=== PATIENT | female | born 1995 | race Caucasian/White ===

== ENCOUNTER → 2020-05-09 08:31 | Outpatient (BNVA) | payer OTHER, MEDICAID, SELFPAY | PROVIDERS: Visit Provider Obstetrics & Gynecology | DX: Z32.01 Encounter for pregnancy test, result positive (principal) | CPT/HCPCS: 81025 ==

== ENCOUNTER → 2020-06-27 11:55 | Outpatient (BNVA) | payer BC, MEDICAID, SELFPAY | PROVIDERS: Visit Provider Obstetrics & Gynecology | DX: O09.899 Supervision of other high risk pregnancies, unspecified trimester (principal); Z3A.00 Weeks of gestation of pregnancy not specified | CPT/HCPCS: 80307; 81000; 82950; 84443; 85027; 86592; 86762; 86803; 86850; 86900; 87086; 87340; 87806 ==

== ENCOUNTER → 2020-07-05 14:38 | Outpatient (BNVA) | payer BC, MEDICAID, SELFPAY | PROVIDERS: Visit Provider Obstetrics & Gynecology | DX: O09.291 Supervision of pregnancy with other poor reproductive or obstetric history, first trimester (principal); O09.899 Supervision of other high risk pregnancies, unspecified trimester | CPT/HCPCS: 81000; 87491; 87591; 88175 ==

== ENCOUNTER → 2020-07-31 00:01 | Outpatient (BNVA) | payer BC, MEDICAID, SELFPAY | PROVIDERS: Visit Provider Obstetrics & Gynecology | DX: O09.291 Supervision of pregnancy with other poor reproductive or obstetric history, first trimester (principal) | CPT/HCPCS: 84156 ==

== ENCOUNTER → 2020-08-04 13:13 | Outpatient (BNVA) | payer BC, MEDICAID, SELFPAY | PROVIDERS: Visit Provider Nurse Practitioner Women's Health | DX: O99.211 Obesity complicating pregnancy, first trimester (principal); O34.219 Maternal care for unspecified type scar from previous cesarean delivery; Z30.2 Encounter for sterilization; O09.291 Supervision of pregnancy with other poor reproductive or obstetric history, first trimester; O09.899 Supervision of other high risk pregnancies, unspecified trimester | CPT/HCPCS: 81000 ==

== ENCOUNTER → 2020-08-29 09:53 | Outpatient (BNVA) | payer BC, MEDICAID, SELFPAY | PROVIDERS: Visit Provider Obstetrics & Gynecology | DX: O34.219 Maternal care for unspecified type scar from previous cesarean delivery (principal); O99.211 Obesity complicating pregnancy, first trimester; O09.291 Supervision of pregnancy with other poor reproductive or obstetric history, first trimester; Z04.89 Encounter for examination and observation for other specified reasons | CPT/HCPCS: 81000 ==

== ENCOUNTER → 2020-09-27 12:40 | Outpatient (BNVA) | payer BC, MEDICAID, SELFPAY | PROVIDERS: Visit Provider Obstetrics & Gynecology | DX: O09.899 Supervision of other high risk pregnancies, unspecified trimester (principal); Z3A.00 Weeks of gestation of pregnancy not specified | CPT/HCPCS: 81000 ==

== ENCOUNTER → 2020-10-23 14:09 | Outpatient (BNVA) | payer BC, MEDICAID, SELFPAY | PROVIDERS: Visit Provider Obstetrics & Gynecology | DX: O09.899 Supervision of other high risk pregnancies, unspecified trimester (principal); O34.219 Maternal care for unspecified type scar from previous cesarean delivery; Z30.2 Encounter for sterilization; O99.211 Obesity complicating pregnancy, first trimester; O09.291 Supervision of pregnancy with other poor reproductive or obstetric history, first trimester | CPT/HCPCS: 81000; 82950; 85025 ==

== ENCOUNTER → 2020-10-26 08:27 | Outpatient (BNVA) | payer BC, MEDICAID, SELFPAY | PROVIDERS: Visit Provider Obstetrics & Gynecology | DX: O09.899 Supervision of other high risk pregnancies, unspecified trimester (principal); R73.09 Other abnormal glucose | CPT/HCPCS: 82951; 82952 ==

== ENCOUNTER → 2020-11-08 10:32 | Outpatient (BNVA) | payer BC, MEDICAID, SELFPAY | PROVIDERS: Visit Provider Obstetrics & Gynecology | DX: O09.899 Supervision of other high risk pregnancies, unspecified trimester (principal) | CPT/HCPCS: 81000; 82570; 84156 ==

== ENCOUNTER → 2020-11-22 09:41 | Outpatient (BNVA) | payer BC, MEDICAID, SELFPAY | PROVIDERS: Visit Provider Obstetrics & Gynecology | DX: O09.899 Supervision of other high risk pregnancies, unspecified trimester (principal) | CPT/HCPCS: 81000 ==

== ENCOUNTER 2020-11-23 16:44 | Outpatient (CLI) | payer BC, MEDICAID, SELFPAY ==
[2020-11-23 16:58] VITALS: BP 128/71; PULSE 110
[2020-11-23 17:01] VITALS: RESP 17; RESP 20; TEMP 36.9
[2020-11-23 17:06] VITALS: BMI 46.6
[2020-11-23 17:18] VITALS: BP 117/58; PULSE 100
[2020-11-23 17:38] VITALS: BP 116/58; PULSE 95
[2020-11-23 17:45] VITALS: BP 116/58; PULSE 95; RESP 20; TEMP 36.9
== END 2020-11-23 17:50 | disposition home or self-care (01) ==
LOC: OPOB 16:46 → OBGYN 16:48
PROVIDERS: Visit Provider Obstetrics & Gynecology
DX: O26.899 Other specified pregnancy related conditions, unspecified trimester (principal); Z3A.00 Weeks of gestation of pregnancy not specified; M54.9 Dorsalgia, unspecified; R10.2 Pelvic and perineal pain
CPT/HCPCS: 59025; 99211

== ENCOUNTER 2020-11-29 23:45 | Observation (INO) | payer OTHER, BC, MEDICAID, SELFPAY ==
[2020-11-23 17:01] VITALS: RESP 17
[2020-11-29] VITALS (95 sets, daily range): BP systolic 84–187; BP diastolic 47–96; PULSE 95–143; RESP 16; TEMP 36.7; O2SAT 96–99; BMI 46.6
--- NOTE | 2020-11-29 17:49 | USR_ITS ---
PROCEDURE INFORMATION: Exam: US Biophysical Profile Without Non-Stress Test Exam date and time: 11/29/2020 6:12 PM Age: 25 years old Clinical indication: Other: High blood pressure; ; Additional info: Elevated blood pressure TECHNIQUE: Imaging protocol: US biophysical profile without non-stress testing. COMPARISON: US OB >= 14 weeks fetus [facility] 08/29/2020 9:24 AM FINDINGS: heart rate: A single fetus is present heart rate is 150 BPM. Placenta is anterior. The amniotic fluid is normal in volume the cervix is unremarkable measuring 4.9 cm. BIOPHYSICAL PROFILE: Breathin/2 Gross body movements: 2/2 tone: 2/2 Qualitative amniotic fluid: 2/2 Biophysical Profile Score: 8/8 BIOMETRY: Gestational age (AUA): Gestational age 33 weeks 1 day JOANNE 01/16/2021 US/US OB BPP wo NST 79168 IMPRESSION: 1. Biophysical profile score is 8 out of 8. 2. Single fetus as described. 3. Gestational age 33 weeks 1 day JOANNE 01/16/2021
[2020-11-29 18:24] LABS: Add Urine Microscopic? NO; Charge for UA Resulting for Rev
[2020-11-29 18:28] LABS: Basophils % 0.3 %; Eosinophils # 0.1 10^3/uL (0.0-0.8); Eosinophils % 0.7 %; Hematocrit 33.8 % (37.0-47.0); Hemoglobin 10.7 g/dL (11.5-15.3); Lymphocytes # 1.6 10^3/uL (0.8-4.8); Lymphocytes % 11.7 %; Mean Corpuscular HGB Conc 31.7 g/dL (30.0-36.0); Mean Platelet Volume 10.5 fL (7.4-10.4); Monocytes # 0.8 10^3/uL (0.2-0.9); Neutrophils # 11.12 10^3/uL (1.8-7.7); Neutrophils % 80.6 %; Nucleated Red Blood Cells % 0 %; Platelet Count 257 10^3/cmm (130-400); Red Blood Count 4.12 10^6/uL (4.1-5.3); Red Cell Distribution Width 14.4 % (12.1-15.1); White Blood Count 13.8 10^3/uL (4.0-10.0)
[2020-11-29] MEDS: magnesium sulfate premix 4 GM/100 ML PREMIX IV (18:36)
[2020-11-29] MEDS: dextrose 5%-lactated ringers 1,000 ML 125 ML IV (18:36)
[2020-11-29] MEDS: betamethasone susp 6 mg/mL 5 mL 12 MG IM (18:36)
[2020-11-29 18:50] LABS: Urine Creatinine 200 mg/dL (28-217); Urine Protein Random 10 mg/dL
[2020-11-29 18:52] LABS: Alanine Aminotransferase 8 U/L (0-33); Albumin Level 3.5 g/dL (3.5-5.2); Alkaline Phosphatase 108 IU/L (35-105); Anion Gap 14.7 (5-19); Aspartate Amino Transferase 9 U/L (0-32); Blood Urea Nitrogen 8 mg/dL (6-20); Calcium 8.3 mg/dL (8.5-10.5); Carbon Dioxide 23 mmol/L (22-29); Chloride 103 mmol/L (98-107); Glomerular Filtration Rate 150.3 mL/min (90-130); Glucose 94 mg/dL (65-115); Osmolality Calculated 282 mOsm/kg (285-295); Potassium 3.7 mmol/L (3.5-5.1); Sodium 137 mmol/L (136-145); Total Bilirubin 0.3 mg/dL (0.15-1.2); Total Protein 6.5 g/dL (6.6-8.7); Uric Acid 5.2 mg/dL (2.4-5.7)
[2020-11-29 18:52] LABS: UPRO/UCREAT Ratio 0.05 mg/mg CR
[2020-11-29 18:55] LABS: Urine Appearance Clear (CLEAR); Urine Color Yellow (Yellow)
[2020-11-29 18:56] LABS: Bilirubin Urine 1+ (Negative); Blood Urine Neg (Negative); Glucose Urine UA Norm (Normal); Ketones Urine Negative (Negative); Leukocyte Esterase Urine Negative (Negative); Nitrate Urine Negative (Negative); Protein Urine Neg (Negative); Urobilinogen Urine 1 mg/dL (Negative); pH Urine 6 (5-7)
--- NOTE | 2020-11-29 19:16 | PC.NURSE ---
MAGNESIUM SULFATE ADMINISTRATION STARTED AT 1836. THIS NURSE DID NOT RECOGNIZE THE 6 GRAM BOLUS WAS INFUSING FROM THE 500ML BAG UNTIL 5 GRAMS HAD BEEN INFUSED. THIS NURSE CONSTANTLY ASSESSED PT AND ONLY COMPLAINT WAS FLUSHED AND FEELING HOT. THIS NURSE REPORTED TO Thomas WEATHERS RN MISTAKE.
[2020-11-29] MEDS: NIFEdipine 10 mg Capsule 30 MG PO (20:33)
[2020-11-29] MEDS: sodium chloride 0.9% 1,000 ML 999 ML IV (21:27)
[2020-11-29] MEDS: fentaNYL 50 mcg/mL INJ 2mL 25 MCG IVP (22:57)
[2020-11-30] VITALS (46 sets, daily range): BP systolic 87–125; BP diastolic 50–69; PULSE 91–109; RESP 18; O2SAT 94–97
[2020-11-30] MEDS: dextrose 5%-lactated ringers 1,000 ML 125 ML IV (01:59)
[2020-11-30] MEDS: acetaminophen 500 mg Tablet PO (02:37)
--- NOTE | 2020-11-30 09:03 | PM.SDS ---
Short Stay Summary Providers Date of Admit/Discharge: 11/30/20 Attending Provider: Esther Green MD Chief Complaint: ELEVATED BLOOD PRESSURE HPI History of Present Illness Kayy Botello is a 25 year old female 4 para 2011 with an LMP of 03/22/2020 and an EDC of 01/16/2021 dated by a by 7 week ultrasound, placing her at 32 1/7 weeks today. Sent over from clinic due to elevated blood pressures, and suspected preeclampsia. Review of Systems Const: Denies: fever(s), chills, change in appetite, change in weight, fatigue, malaise or change in sleep pattern Resp: Denies: dyspnea, productive cough, wheezing or chest congestion GI: Denies: abdominal pain, nausea, vomiting, heartburn, diarrhea, constipation, change in bowel habits or hematochezia : Denies: flank pain, dysuria, urinary frequency, urinary urgency, urinary incontinence, genital lesions, vaginal odor, vaginal bleeding, vaginal discharge, change in menstrual flow or dyspareunia Psych: Denies: anxiety, depression, mood swings or change in appetite Home Meds/Allergies Home Medications and Allergies Home Medications Medication Instructions Recorded Confirmed Type prenat.vits,tatiana,[id number] 1 tab PO DAILY 05/26/20 11/29/20 History aspirin 81 mg chewable tablet 81 mg PO DAILY 08/04/20 11/29/20 History acetaminophen [Tylenol] 325 mg PO QID 11/29/20 11/29/20 History Allergies Allergy/AdvReac Type Severity Reaction Status Date / Time No Known Allergies Allergy Verified 11/22/20 11:01 PFSH Acute PFSH: Medical History No pertinent past medical history Denies diabetes, asthma, hypertension, seizures, DVT/PE PMD: None Surgical History Hx of section X 2 1) 05/24/2015--was told she could not have a vaginal delivery and had a scheduled . 2) 11/12/2018--scheduled repeat delivery. Operative report requested and received-low transverse uterine incision single layer uterine closure, no documentation of any excessive adhesions. Family History Grandfather Heart disease Paternal Colon cancer Maternal--- dx age unknown Stroke Paternal Father Hypertension Heart disease Sister Thyroid disease Denies family history of Ovarian cancer Diabetes Hypercholesteremia Breast cancer Bleeding disorder Uterine cancer Female Reproductive History: : 4 Vitals/I&O/Wt Last Vital Signs Temp 98.0 F 11/29/20 23:54 Pulse 100 11/30/20 08:52 Resp 16 11/29/20 22:57 BP 103/55 11/30/20 08:52 Pulse Ox 95 11/30/20 02:13 11/29/20 11/30/20 11/30/20 22:59 06:59 14:59 Intake Total 100 / 100 1075 / 1175 Output Total 400 / 400 Balance -300 / -300 1075 / 775 Weight last 48 hrs Weight 115.666 kg Physical Exam Narrative: EXAM NARRATIVE: GA: Alert and oriented ?3. Lungs: Clear to auscultation bilaterally. Heart: Regular rhythm and rate. Abdomen: Gravid, full the height equals dates, nontender. CHAIR INSPECTOR: SVE; dilation: close, effacement: 0%, station:, presentation: vertex, membranes:intact. Extremities: no edema, no cyanosis, no calves pain. heart tracing: Basal rate: 140 bpm, Variability: Moderate, Accelerations: Present, Decelerations: Absent, Contraction: NONE now. Urinary Catheter Management^: Aguirre Latex: Cath Placed During This Visit: yes, but has since been removed by the nurse Reason for Continuing Indwelling Catheter: Decision to DC Catheter Urinary Catheter Date of Insertion: 11/29/20 Urinary Catheter Time of Insertion: 18:50 Date Urinary Catheter Removed: 11/29/20 Time Urinary Catheter Discontinued: 22:05 Hospital Course Admission Diagnoses Elevated blood pressure. with EGA at 31 weeks Hospital Course Mrs. Rosenberg 25-year-old female with an estimated stational age at 31 weeks sent over from the clinic after the visit with suspected preeclampsia. Preeclampsia work-up ordered and it was negative she was noted to have contractions nifedipine was given. She has prophylactically been started with magnesium sulfate and corticosteroid for maturation was also given. Contractions subsided after treatment with IV fluids and nifedipine. Blood pressure normalized. SSS Data Data Completed and Pending: Completed Studies During Hospitalization Category Date Time Status US OB BPP w o NST 21086 Routin e Ultrasound 11/29/20 17:49 Completed Diagnoses at Discharge Discharge Diagnosis (1) Polyhydramnios: Status: Acute (2) Previous delivery affecting : Status: Acute (3) Obesity affecting : Status: Acute Qualifiers: Trimester: first trimester Qualified Code(s): O99.211 - Obesity complicating , first trimester (4) Supervision of other high-risk : Status: Acute (5) History of pre-eclampsia in prior , currently in first trimester: Status: Acute Discharge Plan Discharge Patient Disposition: Home Condition: Stable Prescriptions: Continued prenat.vits,tatiana,[id number] Tablet 1 tab PO DAILY RF: 0 (DME) breast pump [Pump In Style Advanced] Device See Rx Instructions .ROUTE .MEDSUPPLY Qty: 1 RF: 0 aspirin 81 mg tablet,chewable 81 mg PO DAILY RF: 0 Tylenol 325 mg Tablet 325 mg PO QID RF: 0 Discharge Orders: Discharge Order (Routine); Ordered 11/30/20 Ordered By: Lobo Marie Discharge Diet: Low Salt Discharge Activity: Increase activity as tolerated Patient Instructions: Labor (GEN), Pre-eclampsia and Eclampsia (GEN), Opioid Safety, OB Undelivered Discharge Activity Restrictions/Additional Instructions: Patient instructed to follow-up at the [facility] with Dr. Buitrago Preeclampsia precautions given. Attestations Medical Necessity Statement*: In my professional opinion per admitting diagnosis Time Spent in Patient Care*: greater than 30 min Quality Metrics Clinical Quality Measures: During this hospital stay, did patient experience: None Coding Level of Care Code Acute Adult Manager for Chg Fwd Diagnoses Polyhydramnios O40.9XX0 Previous delivery affecting O34.219 Obesity affecting O99.211 Trimester: first trimester Supervision of other high-risk O09.899 History of pre-eclampsia in prior , currently in first trimester O09.291
== END 2020-11-30 09:25 | disposition home or self-care (01) ==
LOC: OBGYN 11-30 07:06 → OPOB 11-30 08:20 → OBGYN 11-30 08:20
PROVIDERS: Obstetrics & Gynecology; Admitting Provider Obstetrics & Gynecology; Visit Provider Obstetrics & Gynecology
DX: O40.3XX0 Polyhydramnios, third trimester, not applicable or unspecified (principal); Z3A.32 32 weeks gestation of pregnancy; O34.219 Maternal care for unspecified type scar from previous cesarean delivery; O99.211 Obesity complicating pregnancy, first trimester; O09.893 Supervision of other high risk pregnancies, third trimester; O09.291 Supervision of pregnancy with other poor reproductive or obstetric history, first trimester
CPT/HCPCS: 36415; 51702; 59025; 76819; 80053; 81003; 82570; 84156; 84550; 85025; 96372; 96374; 99211; G0378; J0702; J3010; J3475; J7030

== ENCOUNTER 2020-11-30 17:51 | Outpatient (CLI) | payer OTHER, BC, MEDICAID, SELFPAY ==
[2020-11-30] MEDS: betamethasone susp 6 mg/mL 5 mL 12 MG IM (18:03)
== END 2020-11-30 18:00 | disposition home or self-care (01) ==
LOC: OPOB 17:56 → OBGYN 17:57
PROVIDERS: Visit Provider Obstetrics & Gynecology
DX: O26.899 Other specified pregnancy related conditions, unspecified trimester (principal); Z3A.00 Weeks of gestation of pregnancy not specified
CPT/HCPCS: 96372; J0702

== ENCOUNTER → 2020-12-05 10:36 | Outpatient (BNVA) | payer OTHER, BC, MEDICAID, SELFPAY | PROVIDERS: Visit Provider Obstetrics & Gynecology | DX: O13.3 Gestational [pregnancy-induced] hypertension without significant proteinuria, third trimester (principal); O40.9XX0 Polyhydramnios, unspecified trimester, not applicable or unspecified; O34.219 Maternal care for unspecified type scar from previous cesarean delivery; O99.013 Anemia complicating pregnancy, third trimester | CPT/HCPCS: 81000 ==

== ENCOUNTER → 2020-12-13 12:46 | Outpatient (BNVA) | payer OTHER, BC, MEDICAID, SELFPAY | PROVIDERS: Visit Provider Obstetrics & Gynecology | DX: O13.3 Gestational [pregnancy-induced] hypertension without significant proteinuria, third trimester (principal) | CPT/HCPCS: 84315; 87081 ==

== ENCOUNTER 2020-12-20 15:57 | Outpatient (CLI) | payer OTHER, BC, MEDICAID, SELFPAY ==
[2020-12-20 16:01] VITALS: RESP 18
[2020-12-20 16:03] VITALS: BMI 47.5
[2020-12-20 16:04] VITALS: BP 123/64; PULSE 93
[2020-12-20 16:34] VITALS: BP 127/63; PULSE 111
== END 2020-12-20 16:55 | disposition home or self-care (01) ==
LOC: OPOB 15:58 → OBGYN 15:59
PROVIDERS: Visit Provider Obstetrics & Gynecology
DX: O26.899 Other specified pregnancy related conditions, unspecified trimester (principal); Z3A.00 Weeks of gestation of pregnancy not specified
CPT/HCPCS: 59025; 81000; 87635; 99211

== ENCOUNTER 2020-12-26 07:02 | Inpatient (IN) | payer BC, SELFPAY ==
[2020-12-26] VITALS (19 sets, daily range): BP systolic 93–149; BP diastolic 48–83; PULSE 76–116; RESP 14–18; TEMP 36.2–36.7; O2SAT 95–98; BMI 46.9
--- NOTE | 2020-12-26 08:17 | ANES.PREANE2 ---
Pre-Anesthetic Assessment Pre-Anesthetic Assessment: Height/Weight: Height 1.57 m Weight 116.346 kg Pulse BP 112 H 136/78 12/26/20 07:18 12/26/20 07:18 Proposed Procedure: Familial anesthetic complications: none Was Beta Diallo taken within 24 hours: N/A Was Clonidine taken within 24 hours: N/A Last intake: 2330 Last Intake: 23:30 Social: Social History: No alcohol and No tobacco Exam: Pre-Anes Outpt Exam: alert and oriented x 3 Airway: Submandibular: WNL Cervical ROM: WNL MP: 3 History/ROS: No significant history except as noted CV/HEM: CV/HEM: HTN Metabolic: Metabolic: DM and Morbid obesity Anesthetic Plan: ASA status: 3 Anesthesia: Regional (specify below) (spinal) Risk of > 500 ml blood loss (7ml/kg in children): Yes, adequate IV access and fluids planned PFSH Anesthesia PFSH: Medical History No pertinent past medical history Denies diabetes, asthma, hypertension, seizures, DVT/PE PMD: None Surgical History Hx of section X 2 1) 05/24/2015--was told she could not have a vaginal delivery and had a scheduled . 2) 11/12/2018--scheduled repeat delivery. Operative report requested and received-low transverse uterine incision single layer uterine closure, no documentation of any excessive adhesions. Family History Grandfather Heart disease Paternal Colon cancer Maternal--- dx age unknown Stroke Paternal Father Hypertension Heart disease Sister Thyroid disease Denies family history of Ovarian cancer Diabetes Hypercholesteremia Breast cancer Bleeding disorder Uterine cancer Data Anesthesia Cardiac Studies: No Data to Display
--- NOTE | 2020-12-26 08:25 | PC.NURSE ---
IV attempted by Laura King, EMEKA, Jorge Godwin, RN, and Dora Saenz RN prior to this nurse.
[2020-12-26] MEDS: citric acid-sodium citrate 30 mL UDC PO (08:31)
[2020-12-26] MEDS: famotidine 20 mg/2 mL INJ IVP (08:32)
[2020-12-26] MEDS: lactated ringers 1,000 ML 999 ML IV (08:32)
[2020-12-26] MEDS: metoclopramide 5 mg/mL SDV 2 mL 10 MG IVP (08:32)
[2020-12-26 09:08] LABS: Basophils % 0.3 %; Eosinophils # 0.1 10^3/uL (0.0-0.8); Eosinophils % 0.5 %; Hematocrit 34.6 % (37.0-47.0); Hemoglobin 10.4 g/dL (11.5-15.3); Lymphocytes # 1.6 10^3/uL (0.8-4.8); Lymphocytes % 11.1 %; Mean Corpuscular HGB Conc 30.1 g/dL (30.0-36.0); Mean Corpuscular Hemoglobin 25.1 pg (28.0-34.0); Mean Corpuscular Volume 83.4 fL (81-99); Mean Platelet Volume 10.5 fL (7.4-10.4); Monocytes # 0.9 10^3/uL (0.2-0.9); Neutrophils # 12.04 10^3/uL (1.8-7.7); Neutrophils % 81.4 %; Nucleated Red Blood Cells % 0 %; Platelet Count 265 10^3/cmm (130-400); Red Blood Count 4.15 10^6/uL (4.1-5.3); Red Cell Distribution Width 14.9 % (12.1-15.1); White Blood Count 14.8 10^3/uL (4.0-10.0)
--- NOTE | 2020-12-26 09:30 | P.HPUD_ITS ---
Labor & Delivery H&P Update Date of Procedure: December 26, 2020 Date H&P Performed: 12/20/20 H&P update information: I have reviewed H&P completed within last 30 days, I have examined patient prior to procedure, No changes to prior documentation and H&P is in [facility] EMR on date indicated Changes to previous documentation: Previous delivery x2, multiparity desiring permanent sterilization Admission Diagnosis: Planned procedure: Repeat and bilateral total salpingectomy for sterilization
[2020-12-26 10:49] LABS: Urine Creatinine 201 mg/dL (28-217); Urine Protein Random 13 mg/dL
[2020-12-26 10:50] LABS: UPRO/UCREAT Ratio 0.06 mg/mg CR
--- NOTE | 2020-12-26 11:49 | P.OP_ITS ---
Operative Report Date of procedure: December 26, 2020 OPERATIVE REPORT Date of surgery: 12/26/2020 Date of dictation: 12/26/2020 Preoperative diagnosis: 25-year-old 4 para 2-0-1-2 at 37 weeks and 0 days gestation, gestational hypertension, previous delivery x2 desiring repeat , multiparity desiring total salpingectomy for sterilization, obesity with a BMI of 46.9, polyhydramnios, anemia on iron Postoperative diagnosis/findings: Normal tubes and ovaries bilaterally, baby girl skyline and weighing 6 pounds 13 ounces, clear amniotic fluid, posterior cul-de-sac was obliterated by bladder adhesions to the posterior of the uterus. Dense bladder adhesions Procedure done: Repeat low transverse delivery via Pfannenstiel incision, bilateral salpingectomy for sterilization Specimens removed/disposition of specimens: Placenta and cord which were discarded, bilateral l fallopian tubes totally sent to pathology Surgeon: Dr. Luis Guerrero assistant to the vice president: Leigh Mohan Anesthesia: Spinal anesthesia Estimated blood loss: 700 ml Intravenous fluids: 2000 mL of LR Urine output: 125 mL of clear urine at the end of procedure Medications: As per anesthesia records Complications: None, both baby and mother were left to recover in a stable condition Indication for surgery: Ms. Botello is a 25-year-old 4 para 2-0-1-2 at 37 weeks and 0 days gestation who presented to labor and delivery on 12/26/2020 for scheduled repeat delivery. course was significant for gestational hypertens ion diagnosed at 34 weeks and that is why deliveries at 37 weeks. She has 2 previous and desires repeat and also desires total salpingectomy for sterilization as she was not interested in future pregnancies. She took her last dose of aspirin yesterday which was taken for history of preeclampsia. She denied any new problems when she presented to labor and delivery denied any preeclamptic symptoms. Protein creatinine ratio done today on 12/26/2020 was normal at 0.06--not preeclamptic. She continues to desire repeat and tubal ligation. Consents have been signed on 12/13/2020. PROCEDURE: After consent was obtained, patient was taken to the operating room where spinal anesthesia was placed without difficulty. She was placed supine on the table with a left lateral wedge. Aguirre catheter and SCDs were placed. The abdomen was shaved and then prepped with duo prep. She was draped in a sterile fashion. After checking adequacy of anesthesia, a Pfannenstiel incision was made 2 cm above the pubic symphysis over her old incision. The incision was carried down to the fascia using the Bovie. The fascia was nicked in the midline and the fascial incision was extended laterally using curved Mayos. The inferior aspect of the fascia was grasped with robson clamps and dissected off from the underlying rectus muscle. This was repeated again superiorly without any diff iculty. The rectus muscle was . A johnny was made in the peritoneum and the peritoneal incision was carried inferiorly taking care to proceed in layers so as to avoid the bladder. The peritoneal incision was extended superiorly as well. No adhesions were noted from the uterus to the anterior abdominal wall. The uterus was noted to be rotated to the left. The bladder peritoneum was grasped with smooth forceps a bladder flap was created. the bladder blade was replaced thus protecting the bladder. A LOW TRANSVERSE UTERINE INCISION was made with a scalpel till the amniotic membrane was reached. The uterine incision was then extended laterally using bandage scissors. Amniotomy was done with Allis clamps and clear amniotic fluid was drained. The head of the baby was brought up to the level of the incision and delivered with fundal pressure. The remainder of body followed without any difficulty. The nose and mouth were suctioned, the umbilical cord was clamped and cut and the baby was handed off to the waiting ballet teacher, Dr. Oleary. The placenta was delivered spontaneously with fundal massage. It was noted to be intact and was discarded. The interior of the uterus was cleaned of all clot and debris and was noted to be karo well. The uterus was exteriorized. The uterine incision was closed with 0 Vicryl in a running interlocking manner. Good hemostasis and reapproximation was obtained. Interrupted sutures with 0 Vicryl were placed and good hemostasis and reapproximation was obtained. The abdomen was irrigated and the gutters were cleaned of clot and debris. Normal tubes and ovaries were noted bilaterally. Tubal ligation was performed at this time. The fallopian tube on the right side and in the left side were first identified grasped with Perkins clamps. Using the [employer] device the mesosalpinx under the fallopian tube was identified clamped cauterized and then cut in a sequential fashion until the entire fallopian tube was removed. This was done first on the right side and then the left side without any difficulty. Areas of vasculature were doubly cauterized. The cornual end was cauterized as well. Good hemostasis and reapproximation of tissue was noted. The entire fallopian tube was in this way completely removed bilaterally and sent to pathology. . The cul-de-sac was noted to be completely obliterated and at the bowel was adherent in the cul-de-sac The uterus was placed back into the abdomen and uterine incision was noted to be hemostatic. The peritoneum was closed with a 2-0 plain in a continuous stitch. The rectus muscle was reapproximated with 2-0 plain suture in a mattress stitch. Good hemostasis was noted in the rectus muscle layer. The fascia was inspected for any defects and none were found and the fascia was closed with 0 looped PDS in continuous stitch. The subcutaneous plane was then irrigated and hemostasis was obtained using the Bovie. The subcutaneous plane was then reapproximated using 2-0 plain suture in a continuous manner. She had 2 previous scars from her 2 previous and this was excised to form 1 scar. The skin was then closed with 4-0 Monocryl in a subcuticular fashion. Good reapproximation and hemostasis was noted. Steri-Strips were applied. The incision was dressed with Telfa ,ABD and paper tape. The fundus was noted to be firm at the end of the procedure and excess blood was expressed from the vagina. The patient was left to recover in a stable condition. This documentation was created by [employer] patients transporter software (known for inherent patients transporter error). Every effort was made to assure accuracy of patients transporter. Any obvious errors or omissions should be clarified with the author of the document. 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 2) 11/12/2018--scheduled repeat delivery. Operative report requested and received-low transverse uterine incision single layer uterine closure, no documentation of any excessive adhesions. 3-----> 12/26/2020---repeat low transverse delivery by Dr. Guerrero at [facility] along with tubal ligation. Normal tubes and ovaries bilaterally. Dense adhesions of bladder onto uterus and posterior cul-de-sac obliterated with bowel adhesions Status post tubal ligation 12/26/2020--bilateral total salpingectomy at time of repeat for sterilization. By Dr. Guerrero at [facility]. -----> pathology pending Family History Grandfather Heart disease Paternal Colon cancer Maternal--- dx age unknown Stroke Paternal Father Hypertension Heart disease Sister Thyroid disease Denies family history of Ovarian cancer Diabetes Hypercholesteremia Breast cancer Bleeding disorder Uterine cancer Supplemental [facility] Information - Tobacco Use: Started smoking at age 17 and smoked 2 cigarettes daily until she quit in 2014 when she became . Denies any tobacco use since then. Drug Use: Denies Alcohol Use: Drank socially prior to --once or twice monthly on average. 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 Other Female Reproductive History Menstrual History Comment: Menarche at age 10 with irregular cycles. She usually has between 5-10 cycles a year and when she does bleed she does bleed moderately. Her cycles last for 5 days usually. Sexual History Sexual History Comment: Coitarche at age 14, more than 5 lifetime partners, has been with current partner and father of her baby, Brandon, since 2019. STD History Comment: Has had chlamydia in the past and been treated. Denies any other sexually transmitted diseases Contraception Contraception History Comment: Has used the NuvaRing ParaGard and control pills in the past for contraception. Was a poor pill taker and did not like how the NuvaRing made her feel. She was the ParaGard for about 5 or 6 months and felt it caused a lot of pain and as a result she discontinued it. -Total salpingectomy performed on 12/26/2020 at time of for sterilization History History History 4 Term 2 Miscarriages/Ectopic 1 0 Living Children 2 Other History: 4, Para 2011, CD x 2, SAB x 1 1---> 05/24/15, female(BETH), 6 lbs 9 oz, delivery, complicated by labor, preeclampsia. Delivered in [place]. She states she delivered at 36 weeks and was told her pelvis was too small and just had scheduled . 2---> SAB 05/2017--no D&C was done-early first trimester. 3---> 11/12/2018, female(Josefa), 7lbs, delivery, planned, 39 weeks gestation, complicated gestational hypertension. delivered in [facility] [place] by Dr. Maldonado. No complications. 4--> 12/26/2020, female(Josh Lorenzo), 6 pounds 13 ounces, scheduled repeat delivery at 37 weeks 4 gestational hypertension at term. Delivered by Dr. Guerrero at [facility].
[2020-12-26] MEDS: dextrose 5%-lactated ringers 1,000 ML 125 ML IV ×2 (12:34→20:47)
[2020-12-26] MEDS: ibuprofen 800 mg tablet PO ×2 (14:34→20:48)
[2020-12-26] MEDS: lanolin oint 7 gm 1 APPLIC TOPICAL (15:08)
[2020-12-26] MEDS: ferrous sulfate EC 325 mg Tablet PO (18:29)
[2020-12-26] MEDS: docusate sodium 100 mg Capsule PO (18:29)
--- NOTE | 2020-12-26 22:00 | PC.NURSE ---
Patient up to ambulate OBGYN floor with RN. Patient tolerates activity well.
[2020-12-26 22:43] LABS: Hemoglobin 9.8 g/dL (11.5-15.3); Mean Corpuscular HGB Conc 30.6 g/dL (30.0-36.0); Mean Corpuscular Hemoglobin 24.9 pg (28.0-34.0); Mean Corpuscular Volume 81.2 fL (81-99); Mean Platelet Volume 10.5 fL (7.4-10.4); Platelet Count 244 10^3/cmm (130-400); Red Blood Count 3.94 10^6/uL (4.1-5.3); Red Cell Distribution Width 14.6 % (12.1-15.1); White Blood Count 15.5 10^3/uL (4.0-10.0)
[2020-12-27] MEDS: heparin 5,000 unit/mL INJ 1 mL 5000 UNIT SUBCUT ×3 (00:39→15:36)
--- NOTE | 2020-12-27 01:00 | PC.NURSE ---
Patient states she has passed gas. SHONDA HENDRICKSON
[2020-12-27 02:05] VITALS: BP 99/59; PULSE 92; RESP 15; TEMP 36.6
[2020-12-27 04:00] VITALS: BP 90/51; PULSE 85; RESP 17; TEMP 36.7; O2SAT 97
[2020-12-27] MEDS: HYDROcodone-acetaminophen 5-325 mg Tablet PO ×3 (04:02→23:12)
--- NOTE | 2020-12-27 05:10 | PC.NURSE ---
Aguirre catheter removed per MD's parameters. Patient tolerates procedure well.
[2020-12-27] MEDS: HYDROcodone-acetaminophen 5-325 mg Tablet 1 TAB PO (06:51)
[2020-12-27] MEDS: hydrocortisone 2.5% cream 28 gm 1 APPLIC TOPICAL (06:51)
[2020-12-27] MEDS: docusate sodium 100 mg Capsule PO ×2 (08:06→18:52)
[2020-12-27] MEDS: ferrous sulfate EC 325 mg Tablet PO ×2 (08:06→18:52)
[2020-12-27] MEDS: prenatal vitamin Capsule 1 CAP PO (08:06)
[2020-12-27] MEDS: ibuprofen 800 mg tablet PO ×3 (08:06→20:18)
[2020-12-27 11:26] VITALS: BP 103/61; PULSE 78; RESP 14; TEMP 36.7; O2SAT 94
[2020-12-27 16:31] VITALS: BP 119/80; PULSE 94; RESP 15; TEMP 37.2
--- NOTE | 2020-12-27 18:55 | P.PN_ITS ---
Subjective Subjective: Interval history: SUBJECTIVE: Ms. Marsh states that she is doing well today. Does have some pain and is waiting on pain medication but the p.o. pain medication controls her pain well. She denies any preeclamptic symptoms. Is breast-feeding without any difficulty although the baby is very sleepy. She denies heavy vaginal bleeding abnormal vaginal discharge. She states incision overall feels okay. She wants to shower today she has noted passed flatus but is tolerating full liquid diet without any difficulty. Catheter was removed and she voided without any difficulty. She is tolerating the heparin without any difficulty. She denies fever, chills, shortness of breath and chest pain. OBJECTIVE/PHYSICAL EXAM: Gen.: No acute distress Heart: S1-S2 heard, regular rate and rhythm Lungs: Clear to auscultation bilaterally Abdomen: Soft, fundus firm below umbilicus, tenderness around incision. Incision: Clean dry and intact with Steri-Strips. Legs: No calf tenderness, +1 bilateral pitting pedal edema. ASSESSMENT AND PLAN: 25-year-old 4 para 3-0-1-4 status post scheduled repeat delivery and tubal ligation, postoperative day #1 -She seems to be doing well. Blood pressures are all normotensive and no indication to start medication at this time. -Obesity, postoperative state--on heparin and SCDs for DVT prophylaxis -Status post Aguirre catheter and she is voiding well. We will plan on discontinuing IV later today. -P.o. pain medication as needed and encourage ambulation -Stable vital signs-continue routine monitoring -Hemoglobin stable -Anticipate discharge home in the next 1 to 2 days if she continues to do well. Vitals/I&O/Wt Last Vital Signs Temp 99.0 F 12/27/20 16:31 Pulse 94 12/27/20 16:31 Resp 15 12/27/20 16:31 BP 119/80 12/27/20 16:31 Pulse Ox 94 12/27/20 11:26 12/27/20 12/27/20 12/27/20 06:59 14:59 22:59 Intake Total 1000 / 3250 Output Total 1400 / 2400 Balance -400 / 850 Weight last 48 hrs Weight 256 lb 8 oz Physical Exam Urinary Catheter Management^: Aguirre Latex: Cath Placed During This Visit: yes Reason for Continuing Indwelling Catheter: Perioperative Use in Selected Surgeries Urinary Catheter Date of Insertion: 12/26/20 Urinary Catheter Time of Insertion: 09:50 Data : 12/26/20 22:30 Attestations Medical Necessity Statement*: Patient needs to stay to recover from surgery for the next couple of midnights Coding Level of Care Code Acute Forging Press Lever Tender for Avi Fernando
[2020-12-27 22:00] VITALS: BP 109/71; PULSE 93; RESP 18; TEMP 37.1
[2020-12-28 04:25] VITALS: BP 125/77; PULSE 85; TEMP 36.9; O2SAT 95
[2020-12-28] MEDS: HYDROcodone-acetaminophen 5-325 mg Tablet PO ×2 (05:22→09:23)
--- NOTE | 2020-12-28 07:15 | PM.OBGYDC ---
Discharge Providers PROJECT PLANNER Date of Admission: 12/26/20 07:02 Date of Discharge: 12/28/20 Attending Provider at Admission: Luis Cisse MD Attending Provider at Discharge: Luis Cisse MD Preoperative diagnosis: 25-year-old 4 para 2-0-1-2 at 37 weeks and 0 days gestation, gestational hypertension, previous delivery x2 desiring repeat , multiparity desiring total salpingectomy for sterilization, obesity with a BMI of 46.9, polyhydramnios, anemia on iron Postoperative diagnosis/findings: Normal tubes and ovaries bilaterally, baby girl skyline and weighing 6 pounds 13 ounces, clear amniotic fluid, posterior cul-de-sac was obliterated by bladder adhesions to the posterior of the uterus. Dense bladder adhesions Procedure done: Repeat low transverse delivery via Pfannenstiel incision, bilateral salpingectomy for sterilization Specimens removed/disposition of specimens: Placenta and cord which were discarded, bilateral l fallopian tubes totally sent to pathology Surgeon: Dr. Luis Guerrero Complications: None, both baby and mother were left to recover in a stable condition Indication for surgery: Ms. Botello is a 25-year-old 4 para 2-0-1-2 at 37 weeks and 0 days gestation who presented to labor and delivery on 12/26/2020 for scheduled repeat delivery. course was significant for gestational hypertension diagnosed at 34 weeks and that is why deliveries at 37 weeks. She has 2 previous and desires repeat and also desires total salpingectomy for sterilization as she was not interested in future pregnancies. She took her last dose of aspirin yesterday which was taken for history of preeclampsia. She denied any new problems when she presented to labor and delivery denied any preeclamptic symptoms. Protein creatinine ratio done today on 12/26/2020 was normal at 0.06--not preeclamptic. She continues to desire repeat and tubal ligation. Consents have been signed on 12/13/2020. HOSPITAL COURSE: She underwent an uncomplicated repeat low transverse delivery with tubal ligation on 12/26/2020. She did well on day 0 and was ambulating well, tolerating regular diet, voiding freely, passing flatus. She was breast-feeding without difficulty and bonding well with her daughter. Pain was well-controlled with by mouth pain medication. She denied nausea, vomiting, fever, chills, shortness of breath, leg pain. She had moderate vaginal bleeding. She received heparin and SCDs for DVT prophylaxis throughout her course. Her blood pressures remain normal and she never required any antihypertensive medication. On day # 1 she continued to do well with stable vital signs and stable hemoglobin at 9.8. She was discharged home on day 2 in a stable condition, as she desired early discharge. Warning signs for endometritis, mastitis, DVT/PE were reviewed with her. Post delivery activity restrictions were also reviewed with her at all her questions were answered to her satisfaction. She had a tubal ligation for contraception. She will have a 1 week blood pressure check, 2-week incision and 6-week visit with al EXAM AT DISCHARGE: Gen.: No acute distress Heart: S1-S2 heard, regular rate and rhythm Lungs: Clear to auscultation bilaterally Abdomen: Soft, fundus firm below umbilicus, tenderness around incision. Incision: Clean dry and intact with Steri-Strips. Legs: No calf tenderness, +1 bilateral pitting pedal edema. CONDITION AT DISCHARGE: Stable This documentation was created by [employer] meat inspector software (known for inherent meat inspector error). Every effort was made to assure accuracy of meat inspector. Any obvious errors or omissions should be clarified with the author of the document. Reason for Visit Reason for Visit: Scheduled Section Information Peripartum Data: Infant Delivery Method: Physical Exam Urinary Catheter Management^: Aguirre Latex: Cath Placed During This Visit: yes Reason for Continuing Indwelling Catheter: Perioperative Use in Selected Surgeries Urinary Catheter Date of Insertion: 12/26/20 Urinary Catheter Time of Insertion: 09:50 Discharge Data Vitals: Last Vital Signs Temp 98.5 F 12/28/20 04:25 Pulse 85 12/28/20 04:25 Resp 18 12/27/20 22:00 BP 125/77 12/28/20 04:25 Pulse Ox 95 12/28/20 04:25 Discharge Plan Discharge Patient Disposition: Home Condition: Stable Prescriptions: New ibuprofen 800 mg tablet 800 mg PO Q8H Qty: 30 RF: 0 hydrocodone-acetaminophen 5-325 mg tablet 1 tab PO Q6H Qty: 25 RF: 0 docusate sodium 100 mg Capsule 100 mg PO BID PRN (Reason: constipation) Qty: 30 RF: 0 Continued prenat.vits,tatiana,[id number]-[id number] Tablet 1 tab PO DAILY RF: 0 Discontinued aspirin 81 mg tablet,chewable 81 mg PO DAILY RF: 0 acetaminophen [Tylenol] 325 mg Tablet 325 mg PO QID RF: 0 ferrous sulfate [iron] 325 mg (65 mg iron) Tablet 325 mg PO DAILY RF: 0 No Action (DME) breast pump [Pump In Style Advanced] Device See Rx Instructions .ROUTE .MEDSUPPLY Qty: 1 RF: 0 Discharge Orders: Discharge Order (Routine); Ordered 12/28/20 Ordered By: Luis Cisse Referrals: Luis Cisse MD [Physician] - 01/09/21 9:30 am (Your 2 week incision check is scheduled for 01/09 @9:[address] Guerrero. Your 6 week post appointment is scheduled for 02/06 @10:15.) Discharge Diet: Usual diet Patient Instructions: Depression (GEN), Pre-eclampsia and Eclampsia (DC), Bleeding (DC), OB WHC, OB Discharge Report, OB Food/Drug Interaction Guide, Opioid Safety, OB Home Care, OB Proud Parent Packet Activity Restrictions/Additional Instructions: Pelvic rest for 6 weeks, no heavy lifting for 6 weeks, 1 week blood pressure check, 2-week incision check, 6-week Discharge Attestations PROJECT PLANNER Time Spent in Discharge Care*: greater than 30 min Coding Level of Care Code Acute Billing And Quality Technician for Avi Fernando
[2020-12-28] MEDS: ferrous sulfate EC 325 mg Tablet PO (09:02)
[2020-12-28] MEDS: prenatal vitamin Capsule 1 CAP PO (09:02)
[2020-12-28] MEDS: docusate sodium 100 mg Capsule PO (09:02)
[2020-12-28] MEDS: ibuprofen 800 mg tablet PO (09:02)
[2020-12-28] MEDS: heparin 5,000 unit/mL INJ 1 mL 5000 UNIT SUBCUT (09:46)
[2020-12-28 12:06] VITALS: BP 112/72; PULSE 90; RESP 14; TEMP 37.4
--- NOTE | 2020-12-28 13:00 | PC.NURSE ---
Call from physician Dr. Guerrero gave telephone orders through Marcello Perales RN to change the patient's preferred pharmacy to [facility] from [facility] due to the fact that [facility] was out of Vernon pain medication. She stated for this nurse to discontinue the discharge medication order for Vernon and she would write a new order when she gets to the floor. No further orders received at this time.
== END 2020-12-28 12:32 | disposition home or self-care (01) | DRG 785 ==
LOC: OPOB 07:02 → OBGYN 07:03 → OPOB 10:19 → OBGYN 10:19
PROVIDERS: Admitting Provider Obstetrics & Gynecology; Visit Provider Obstetrics & Gynecology
DX: O13.4 Gestational [pregnancy-induced] hypertension without significant proteinuria, complicating childbirth (principal); O34.211 Maternal care for low transverse scar from previous cesarean delivery; O36.63X0 Maternal care for excessive fetal growth, third trimester, not applicable or unspecified; O99.214 Obesity complicating childbirth; E66.9 Obesity, unspecified; O40.3XX0 Polyhydramnios, third trimester, not applicable or unspecified; O99.02 Anemia complicating childbirth; D64.9 Anemia, unspecified; Z30.2 Encounter for sterilization; Z37.0 Single live birth; Z3A.37 37 weeks gestation of pregnancy
CPT/HCPCS: 36415; 51702; 59025; 59409; 82570; 84156; 85025; 85027; 86850; 86900; 88302; 96372; 96374; 96375; J0690; J1644; J2274; J2405; J2765; J3490; J7030

== ENCOUNTER 2023-01-15 05:50 | Day surgery (SDC) | payer BC, MEDICAID, SELFPAY ==
[2023-01-15] VITALS (9 sets, daily range): BP systolic 103–147; BP diastolic 51–83; PULSE 78–99; RESP 16; TEMP 36.1; O2SAT 94–100; BMI 48.4
[2023-01-15 06:16] LABS: OR HCG Qualitative Urine Negative (Negative)
[2023-01-15] MEDS: sodium chloride 0.9% 1,000 ML 30 ML IV (06:23)
--- NOTE | 2023-01-15 06:49 | ANES.PREANE2 ---
Pre-Anesthetic Assessment Height/Weight: Height 1.57 m Weight 120.202 kg O2 Del Method Room Air 01/15/23 06:06 Preop Diagnosis: aub Operation Date: 01/15/23 07:00 Proposed Procedures p Hysteroscopy, dilation and curettage with Myosure [id number],N93.9(Not Applicable) - Esther Green MD s Dilation And Curettage (D&C)(Not Applicable) - Esther Green MD Familial anesthetic complications: None Was Beta Diallo taken within 24 hours: N/A Was Clonidine taken within 24 hours: N/A Last intake: Intake Last Liquid Date 01/14/23 Last Liquid Time 22:00 Last Solid Date 01/14/23 Last Solid Time 22:00 Social No alcohol and No tobacco Exam alert, oriented x 3, clear to auscultation bilaterally and regular rate & rhythm Airway Mallampati: Class I Dentition: full Metabolic Morbid Obesity Anesthetic Plan ASA status: 2 Anesthesia: General Risk of > 500 ml blood loss (7ml/kg in children): No Medications/Allergies Home Medications Medication Instructions Recorded Confirmed Last Taken Type No Known Home Medications 01/10/23 01/14/23 Unknown History Allergies Allergy/AdvReac Type Severity Reaction Status Date / Time No Known Allergies Allergy Verified 01/10/23 10:57 Current Medications Generic Name Dose Route Start Last Admin Trade Name Freq PRN Reason Stop Dose Admin Sodium Chloride 1,000 mls @ 30 mls/hr 01/15/23 06:00 01/15/23 06:23 Sodium Chloride 0.9% IV 01/16/23 05:59 30 mls/hr .Q24H VENKATESH Administration PFSH Anesthesia Medical History No pertinent past medical history Denies diabetes, asthma, hypertension, seizures, DVT/PE PMD: None Surgical History Hx of section X 3 1) 05/24/2015--was told she could not have a vaginal delivery and had a scheduled . 2) 11/12/2018--scheduled repeat delivery. Operative report requested and received-low transverse uterine incision single layer uterine closure, no documentation of any excessive adhesions. 3-----> 12/26/2020---repeat low transverse delivery by Dr. Guerrero at [facility] along with tubal ligation. Normal tubes and ovaries bilaterally. Dense adhesions of bladder onto uterus and posterior cul-de-sac obliterated with bowel adhesions Status post tubal ligation 12/26/2020--bilateral total salpingectomy at time of repeat for sterilization. By Dr. Guerrero at [facility]. -----> pathology showed benign fallopian tubes bilaterally. Family History Grandfather Heart disease Paternal Colon cancer Maternal--- dx age unknown Stroke Paternal Father Hypertension Heart disease Sister Thyroid disease Denies family history of Ovarian cancer Diabetes Hypercholesteremia Breast cancer Bleeding disorder Uterine cancer Data Anesthesia Cardiac Studies: No Data to Display
--- NOTE | 2023-01-15 08:45 | W.PM.OPSUD ---
Surgery/Procedure H&P Update DATE OF PROCEDURE: January 15, 2023 DATE H&P PERFORMED: 01/10/23 H&P UPDATE INFORMATION: I have reviewed H&P completed within last 30 days, I have examined patient prior to procedure and No changes to prior documentation PREOP DIAGNOSIS: aub PLANNED PROCEDURE: Operation Date: 01/15/23 07:00 Proposed Procedures p Hysteroscopy, dilation and curettage with Myosure [id number],N93.9(Not Applicable) - Esther Green MD s Dilation And Curettage (D&C)(Not Applicable) - Esther Green MD Related Problem List Diagnoses (1) Abnormal uterine bleeding (AUB):
[2023-01-15] MEDS: ceFAZolin 2,000 MG in sodium chloride 0.9% (plus) 50 ML 100 MG IV (09:30)
--- NOTE | 2023-01-15 10:18 | PM.OP ---
Operative Report Date of procedure: January 15, 2023 Pre-op diagnosis: Preop Diagnosis aub Post-op diagnosis: same Post-op findings: 10 week sized uterus with large fibroids Procedure done: hysteroscopy, dilation and curettage with myosure Specimens removed/disposition: endometrial curettings to pathology Surgeon: Esther Green Anesthesia: MAC Estimated blood loss (mL): 5 IV fluids (mL): 500 Complications: none Findings: hysteroscopy deficit 400 ml Condition: stable Disposition: PACU Procedure: The patient was taken to the operating room where monitored anesthesia was administered and to be adequate. She was prepped and draped in the normal sterile fashion in the dorsal lithotomy position in [facility]. A weighted speculum was placed into the vagina and the anterior lip of the cervix grasped with a single-tooth tenaculum. The uterus was sounded to 10 cm. The cervix was dilated to 16 [place]. The hysteroscope was advanced into the endometrial cavity. There was an enlarged endometrial cavity with a large fibroid on the right. Also, polypoid tissue visualized. The MyoSure device was activated and the tissue was removed. Pictures were taken pre and post procedure. All instruments were removed. The patient tolerated the procedure well. Sponge lap and needle counts were correct x3. She was taken to the recovery room in stable condition.
--- NOTE | 2023-01-15 10:21 | PM.DCS ---
Discharge Providers Date of Admission: 01/15/23 Date of Discharge: January 15, 2023 Attending Provider at Discharge: Esther Green MD Primary Care Provider: MARCELINA Zurita Diagnoses at Discharge Discharge Diagnosis (1) Abnormal uterine bleeding (AUB): Status: Acute Reason for Visit Reason for Visit: N93.9 Hospital Course Hospital Course The patient was admitted for surgery. She did well postoperatively and was ready for discharge. Discharge Data Studies Completed and Pending Laboratory Results Urine HCG, Qual Negative (Negative) 01/15/23 06:15 Vitals Last Vital Signs O2 Del Method Room Air 01/15/23 06:06 Discharge Plan Discharge Patient Disposition: Home Condition: Stable Prescriptions: Continued No Known Home Medications Discharge Orders: Discharge Order (Routine); Ordered 01/15/23 Ordered By: Esther Green Discharge Attestations Time Spent in Discharge Care*: less than 30 min Quality Metrics Clinical Quality Measures [ No reported AMI, CVA or VTE this stay] Coding Level of Care Code Acute Code for Chg Fwd Diagnoses Abnormal uterine bleeding (AUB) N93.9
--- NOTE | 2023-01-15 11:00 | ANE.PACU2 ---
Inpatient post-anesthesia follow up: Airway intact: Yes Vital signs: Temperature 97 F Pulse Rate 81 Respiratory Rate 16 Blood Pressure 109/51 Pulse Oximetry 97 Oxygen Delivery Me thod Room Air Oxygen Flow Rate Fraction of Inspir ed Oxygen Hydration adequate: Yes Nausea and vomiting: No Pain level: 1 Mental status: Baseline
== END 2023-01-15 11:18 | disposition home or self-care (01) ==
PROVIDERS: Anesthesiology; PCP Nurse Practitioner Family; Visit Provider Obstetrics & Gynecology
PROC: 0UDB8ZZ Extraction of Endometrium, Via Natural or Artificial Opening Endoscopic (ICD-10-PCS; CPT 58558; principal; 2023-01-15 07:00)
PROC: (CPT 58120; 2023-01-15 07:00)
DX: N93.9 Abnormal uterine and vaginal bleeding, unspecified (principal); E66.01 Morbid (severe) obesity due to excess calories; Z68.42 Body mass index [BMI] 45.0-49.9, adult; D25.9 Leiomyoma of uterus, unspecified
CPT/HCPCS: 58558; 81025; 84703; 88305; J0690; J1100; J2405; J2704; J3010; J7030

== ENCOUNTER → 2023-01-20 09:01 | Outpatient (BNVA) | payer OTHER, BC, SELFPAY | PROVIDERS: PCP Nurse Practitioner Family; Visit Provider Obstetrics & Gynecology | DX: Z48.89 Encounter for other specified surgical aftercare (principal); Z98.890 Other specified postprocedural states | CPT/HCPCS: 85025 ==

== ENCOUNTER 2023-01-21 15:14 | Emergency (ER) | payer OTHER, BC, SELFPAY ==
[2023-01-21 15:29] VITALS: BP 135/78; PULSE 85; RESP 14; TEMP 36.7; O2SAT 99; BMI 47.9
--- NOTE | 2023-01-21 16:00 | PC.NURSE ---
c-collar placed on patient
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
== END 2023-01-21 17:49 | disposition home or self-care (01) ==
PROVIDERS: Emergency Provider Emergency Medicine; PCP Nurse Practitioner Family
DX: S13.4XXA Sprain of ligaments of cervical spine, initial encounter (principal); V89.2XXA Person injured in unspecified motor-vehicle accident, traffic, initial encounter
CPT/HCPCS: 72040; 99283